=== PATIENT | male | born 1960 | race Caucasian/White ===

== ENCOUNTER 2021-05-29 18:42 | Inpatient (IN) | payer OTHER ==
[~2021-05-29] VITALS: Ht 182.9 cm; Wt 95.3 kg
[~2021-05-29 18:42] MED LIST: CEPHALEXIN500 MG PO
[2021-05-29 19:14] LABS: HEMOGLOBIN 15.5 gm/dl (14.0-17.5); RED BLOOD COUNT 5.02 M/UL (4.20-5.50); WHITE BLOOD COUNT 11.9 K/UL (4.5-11.0)
[2021-05-29] MEDS ORDERED: FLOMAX 0.4 MG0.4 MG PO (23:40)
[2021-05-29] MEDS ORDERED: IRBESARTAN150 MG PO (23:40)
[2021-05-29] MEDS ORDERED: PROTONIX 40 MG40 M1 PO (23:41)
[2021-05-29] MEDS ORDERED: CICLOPIROX TP (23:42)
[2021-05-29] MEDS ORDERED: CYANOCOBAL1000 MCG/1 INJ (23:43)
--- NOTE | 2021-05-29 23:49 | NUR ---
PT SAYS HE HAS NO KNOWN DRUG ALLERGIES. HE IS ABLE TO TAKE NSAIDS AND TORADOL NOW, THOSE WERE OLD.
[2021-05-30 09:48] LABS: HEMOGLOBIN 14.2 gm/dl (14.0-17.5); RED BLOOD COUNT 4.64 M/UL (4.20-5.50); WHITE BLOOD COUNT 13.3 K/UL (4.5-11.0)
--- NOTE | 2021-05-30 23:29 | NUR ---
WHEN PT RETURNED FROM SURGERY, I ASSESSED HIS DRESSING AND DRAIN. THE DRESSING WAS DRY AND INTACT WITH NO DRAINAGE NOTED. NG TUBE WAS HOOKED UP TO SUCTION WITH BROWN DRAINAGE COMING OUT. I WENT BACK TO ASSESS PATIENT AND NG TUBE WAS PULLING BRIGHT RED BLOOD. I CHECKED HIS DRESSING AND IT WAS SATURATED IN BLOOD, WELL HIS GOWN. THERE WAS BLOOD DRAINING UNDER THE DRESSING ONTO THE BED WITH CLOTS. I NOTIFIED . HE WAS IN THE BUILDING AND CAME UP TO THE SEE THE PATIENT. HE REMOVED THE DRESSING AND USED SILVER NITRATE TO STOP THE BLEEDING SPOTS IN HIS INCISION LINE. HE REPLACED THE DRESSING AND ADDED AN ABDOMINAL BINDER.
== END 2021-06-04 18:50 | disposition home health service (06) | DRG 330 ==
LOC: ER1 18:42 → CDU 22:56 → M/S 23:24
PROVIDERS: Anesthesiology; Physician Assistant; ADMIT Surgery
PROC: 0D1L0Z4 Bypass Transverse Colon to Cutaneous, Open Approach (ICD-10-PCS; 2021-05-30)
PROC: 0DTN0ZZ Resection of Sigmoid Colon, Open Approach (ICD-10-PCS; principal; 2021-05-30 15:37)
DX: K57.20 Diverticulitis of large intestine with perforation and abscess without bleeding (principal); N17.9 Acute kidney failure, unspecified; C61 Malignant neoplasm of prostate; Z20.822 Contact with and (suspected) exposure to COVID-19; N18.9 Chronic kidney disease, unspecified; Z83.3 Family history of diabetes mellitus; Z88.6 Allergy status to analgesic agent; Z90.49 Acquired absence of other specified parts of digestive tract
CPT/HCPCS: 36415; 80048; 80053; 85025; 96374; 96375; 96376; 99285; C9113; J1100; J1170; J2001; J2250; J2270; J2405; J2543; J2704; J3010; J7030; J7120; Q9967; U0002

== ENCOUNTER → 2021-08-05 | Outpatient (CLI) | payer OTHER ==
[~2021-08-05] MED LIST changes: +CICLOPIROX TP; +CYANOCOBAL1000 MCG/1 INJ; +FLOMAX 0.4 MG0.4 MG PO; +IRBESARTAN150 MG PO; +PROTONIX 40 MG40 M1 PO
[2021-08-05 09:55] LABS: HEMOGLOBIN 16.1 gm/dl (14.0-17.5); RED BLOOD COUNT 5.14 M/UL (4.20-5.50); WHITE BLOOD COUNT 6.7 K/UL (4.5-11.0)
[2021-08-06 08:15] LABS: ESTRADIOL 18.5 pg/mL (7.6-42.6); LUTEINIZING HORMONE(LH) <0.3 mIU/mL (1.7-8.6); TESTOSTERONE, SERUM 712 ng/dL (264-916)
== END ==
LOC: LAB 09:19
PROVIDERS: Nurse Practitioner Family
DX: C61 Malignant neoplasm of prostate (principal)
CPT/HCPCS: 36415; 82670; 83002; 84153; 84403; 85027

== ENCOUNTER → 2021-09-20 | Day surgery (SDC) | payer OTHER ==
[~2021-09-20] MED LIST changes: +ACYCLOVIR400 MG PO; +CLARITIN10 M2 PO
== END | disposition home or self-care (01) ==
LOC: OR 08:31
DX: K57.30 Diverticulosis of large intestine without perforation or abscess without bleeding (principal); I10 Essential (primary) hypertension; K21.9 Gastro-esophageal reflux disease without esophagitis; F17.290 Nicotine dependence, other tobacco product, uncomplicated; Z93.3 Colostomy status; Z79.899 Other long term (current) drug therapy
CPT/HCPCS: J2704; J7030

== ENCOUNTER → 2021-10-09 | Outpatient (CLI) | payer OTHER ==
[~2021-10-09] MED LIST changes: +ALLEGRA-D 24 H1 EACH PO
== END ==
LOC: OPSV2 11:00
PROVIDERS: Surgery
DX: Z01.812 Encounter for preprocedural laboratory examination (principal)
CPT/HCPCS: 80048

== ENCOUNTER 2021-10-17 05:23 | Inpatient (IN) | payer OTHER ==
[~2021-10-17] VITALS: Ht 182.9 cm; Wt 90.7 kg
[~2021-10-17 05:23] MED LIST changes: -ALLEGRA-D 24 H1 EACH PO; -CYANOCOBAL1000 MCG/1 INJ; -FLOMAX 0.4 MG0.4 MG PO; -PROTONIX 40 MG40 M1 PO
[2021-10-17] MEDS ORDERED: ALLEGRA-D 24 H1 EACH PO (12:19)
[2021-10-17] MEDS ORDERED: IRBESARTAN300 MG PO (18:47)
[2021-10-17] MEDS ORDERED: FLOMAX 0.4 MG0.4 MG PO (23:40)
[2021-10-17] MEDS ORDERED: PROTONIX 40 MG40 M1 PO (23:41)
[2021-10-17] MEDS ORDERED: CYANOCOBAL1000 MCG/1 INJ (23:43)
[2021-10-19 07:58] LABS: HEMOGLOBIN 14.9 gm/dl (14.0-17.5); RED BLOOD COUNT 4.97 M/UL (4.20-5.50); WHITE BLOOD COUNT 7.9 K/UL (4.5-11.0)
== END 2021-10-21 17:34 | disposition home or self-care (01) | DRG 346 ==
LOC: OR 05:23 → M/S 14:51
PROVIDERS: ADMIT Surgery
PROC: 0DSL0ZZ Reposition Transverse Colon, Open Approach (ICD-10-PCS; principal; 2021-10-17 07:30)
DX: Z43.3 Encounter for attention to colostomy (principal); Z20.822 Contact with and (suspected) exposure to COVID-19; R51.9 Headache, unspecified; J06.9 Acute upper respiratory infection, unspecified; Z79.899 Other long term (current) drug therapy; Z79.52 Long term (current) use of systemic steroids
CPT/HCPCS: 80048; 85025; 87070; 87077; 87186; 87205; J0690; J1100; J1170; J1650; J2001; J2250; J2270; J2405; J2543; J2704; J2710; J3010; J7120

== ENCOUNTER → 2022-06-12 | Day surgery (SDC) | payer OTHER ==
[~2022-06-12] MED LIST changes: +ALLEGRA-D 24 H1 EACH PO; +CBD OIL PO; +CYANOCOBAL1000 MCG/1 INJ; +FLOMAX 0.4 MG0.4 MG PO; +IRBESARTAN300 MG PO; +LOW DOSE ASPIRI81 MG PO; +PERCOCET 5/325 T1 EA PO; +PROTONIX 40 MG40 M1 PO; +PROTONIX40 MG PO; +TERBINAFINE HC250 MG PO; +TOPROL XL25 MG PO; +VITAMIN B12 INJ
== END | disposition home or self-care (01) ==
LOC: OR 06:45
PROVIDERS: Surgery
DX: K43.9 Ventral hernia without obstruction or gangrene (principal); K66.0 Peritoneal adhesions (postprocedural) (postinfection); Z93.3 Colostomy status
CPT/HCPCS: 80048; C1713; C1781; J0690; J1100; J1170; J1885; J2001; J2370; J2405; J2704; J3010